=== PATIENT | female | born 1995 | race Caucasian/White ===

== ENCOUNTER 2019-05-25 03:00 | Inpatient (IN) | payer BC ==
[~2019-05-25] VITALS: Ht 157.5 cm; Wt 64.9 kg
[2019-05-25 02:40] VITALS: BP 91/57
--- NOTE | 2019-05-25 02:40 | NUR ---
Direct admit from [facility] admitted to Telemetry unit Patient oriented to Xiomara Marrufo RN primary RN, unit, room, bed, and unit policies regarding patient care and visiting hours. . Patient weighed by bedscale and encouraged to call if they need something. All questions and concerns addressed, patient verbalized understanding. Note: Patient admitted for syncopal episodes, seizure and fall precautions placed. Patient alert x4, no distress on room air, ambulatory with standby assistancem, skin intact
[2019-05-25] MEDS ORDERED: MORPHINE SULF INJ 2 MG/ML SYRINGE 1ML IV PRN (04:00)
[2019-05-25] MEDS ORDERED: NITROGLYCERIN 0.4 MG SL TAB SL PRN (04:00)
[2019-05-25 05:00] VITALS: BP 89/44
[2019-05-25 06:36] LABS: Basophils # (auto) 0 uL; Basophils % (auto) 0.3 % (0.0-2.0); Eosinophils # (auto) 0.1 uL; Eosinophils % (auto) 1.8 % (0.0-7.0); Hematocrit 39.8 % (36.0-46.0); Hemoglobin 13.8 g/dL (12.2-16.2); Lymphocytes # (auto) 2.5 uL; Lymphocytes % (auto) 39.1 % (10.0-50.0); Mean Corpuscular Hemoglobin 33.5 pg (28.0-32.0); Mean Corpuscular Hgb Conc. 34.6 g/dL (32.0-36.0); Monocytes # (auto) 0.5 uL; Monocytes % (auto) 7.3 % (0.0-12.0); Neutrophils # (auto) 3.3 uL; Neutrophils % (auto) 51.5 % (37.0-80.0); Nucleated Red Blood Cells % 0.1 %; Platelet Count (auto) 232 10^3/uL (140-450); Red Cell Distribution Width 12.2 % (11.8-14.3); White Blood Cell 6.5 10^3/uL (4.4-10.8)
[2019-05-25] MEDS: SODIUM CHLORIDE 0.9% 1,000 ML IV SCH ×2 (06:55→12:30)
[2019-05-25 06:56] LABS: Albumin 3.4 g/dL (3.4-5.0); Calcium 8.2 mg/dL (8.5-10.1); Potassium 3.6 mmol/L (3.5-5.1)
[2019-05-25 07:00] LABS: BUN/Creatinine Ratio 13.3; Bilirubin, Total 0.6 mg/dL (0.2-1.0); Total Protein 6.3 g/dL (6.4-8.2)
--- NOTE | 2019-05-25 07:30 | NUR ---
Opening Shift Note Assumed care of patient, awake and alert. No S/S of distress/SOB or pain. Instructed on POC and to call for assist PRN, will continue to monitor for changes Q1hr and PRN.
[2019-05-25 08:40] VITALS: BP 91/58
[2019-05-25 13:08] VITALS: BP 98/61
--- NOTE | 2019-05-25 14:00 | NUR ---
HELEN MADISON, AWARE OF ORTHOSTATIC BP ORDER.
[2019-05-25 17:07] VITALS: BP_SYST 105; BP_SYST 94; BP_SYST 97; BP_DIAS 57; BP_DIAS 58; BP_DIAS 72
--- NOTE | 2019-05-25 19:45 | NUR ---
Opening Shift Note Assumed care of patient, awake and alert. No S/S of distress/SOB or pain. Instructed on POC and to call for assistance PRN, will continue to monitor for changes Q1hr and PRN. Instructed to call for assistance to bathroom, bed alarm on
--- NOTE | 2019-05-25 20:59 | NUR ---
UA bulleted to lab
[2019-05-25 21:42] LABS: Urine Bacteria NONE SEEN /hpf (None Seen); Urine Blood Negative /uL (Negative); Urine Specific Gravity 1.013 (1.001-1.035); Urine WBC <1 /hpf (0 - 5)
[2019-05-25 22:00] VITALS: BP_SYST 101; BP_SYST 111; BP_DIAS 49; BP_DIAS 57; BP_DIAS 66
[2019-05-26 00:23] VITALS: BP 101/49
[2019-05-26] MEDS: SODIUM CHLORIDE 0.9% 1,000 ML IV SCH ×3 (01:11→21:20)
[2019-05-26 05:00] VITALS: BP_SYST 121; BP_SYST 90; BP_DIAS 46; BP_DIAS 57; BP_DIAS 62
[2019-05-26 06:51] LABS: Basophils # (auto) 0.1 uL; Basophils % (auto) 0.8 % (0.0-2.0); Eosinophils # (auto) 0.1 uL; Eosinophils % (auto) 2.3 % (0.0-7.0); Hematocrit 41.3 % (36.0-46.0); Hemoglobin 14.3 g/dL (12.2-16.2); Lymphocytes # (auto) 2.4 uL; Lymphocytes % (auto) 37.8 % (10.0-50.0); Mean Corpuscular Hemoglobin 33.7 pg (28.0-32.0); Mean Corpuscular Hgb Conc. 34.7 g/dL (32.0-36.0); Monocytes # (auto) 0.6 uL; Monocytes % (auto) 8.7 % (0.0-12.0); Neutrophils # (auto) 3.2 uL; Neutrophils % (auto) 50.4 % (37.0-80.0); Platelet Count (auto) 243 10^3/uL (140-450); Red Blood Cells 4.25 10^6/uL (4.0-5.20); White Blood Cell 6.3 10^3/uL (4.4-10.8)
--- NOTE | 2019-05-26 07:15 | NUR ---
Rounds Patient awake and alert x4. No S/S of distress/SOB or pain. Patient just ambulated back to bed with assistance from casino assistant manager, back in bed. Pt states she feels much better today. Will endorse care to Lelia SALCIDO
[2019-05-26 07:29] LABS: Calcium 8.7 mg/dL (8.5-10.1); Potassium 4.1 mmol/L (3.5-5.1)
[2019-05-26 07:30] LABS: BUN/Creatinine Ratio 17.6
--- NOTE | 2019-05-26 07:40 | NUR ---
OPENING NOTE Assumed care of patient from NOC RNXiomara. Patient awake and alert with no S/S of distress/SOB or pain. Instructed on POC and to call for assist PRN, verbalized understanding. Bed in lowest, locked position with side rails up x2 and call light within reach. Will continue to monitor for changes Q1hr and PRN.
[2019-05-26 08:52] VITALS: BP 111/64
--- NOTE | 2019-05-26 10:49 | NUR ---
NAUSEA Patient c/o nausea and increased vertigo. Assisted patient to restroom with moderate assistance secondary to weak gait. Informed patient to call for future assistance. Paged Dr. Pam Mcpherson per patient's request for antiemetic. Awaiting call back.
--- NOTE | 2019-05-26 11:35 | NUR ---
Nutrition consult/assessment Notes please see attached link for complete assessment Est. Needs BW 67 [id number] kcal (23-25 kcal/kgBW), 67-73 gms pro (1.0-1.1 gms/kgBW). Will continue to monitor pertinent labs and reassess nutrient need prn. Addendum: 05/26/19 at [address] Amended: Links added.
--- NOTE | 2019-05-26 12:05 | NUR ---
EEG COMPLETED AT BEDSIDE. LOLY PACK.
[2019-05-26 13:13] VITALS: BP 109/78
--- NOTE | 2019-05-26 15:00 | NUR ---
AT BEDSIDE Dr. Vladislav Mcpherson at patient's bedside.
[2019-05-26] MEDS ORDERED: PROMETHAZINE HCL 25 MG/ML 1ML IV PRN (15:30)
--- NOTE | 2019-05-26 16:15 | NUR ---
TELE PSYCH Called to initiate tele psych evaluation per order. Rep states top hat body maker will call to set up consultation time.
[2019-05-26 17:18] VITALS: BP 104/70
--- NOTE | 2019-05-26 19:20 | NUR ---
CLOSING NOTE Endorsed care of patient to NOC RN, Cassy.
[2019-05-26 21:30] VITALS: BP 94/58
[2019-05-27 04:30] VITALS: BP 96/48
[2019-05-27] MEDS: SODIUM CHLORIDE 0.9% 1,000 ML IV SCH ×2 (06:07→16:00)
[2019-05-27 06:46] LABS: Basophils # (auto) 0 uL; Basophils % (auto) 0.4 % (0.0-2.0); Eosinophils # (auto) 0.2 uL; Eosinophils % (auto) 2.3 % (0.0-7.0); Hematocrit 40.9 % (36.0-46.0); Hemoglobin 14.2 g/dL (12.2-16.2); Lymphocytes # (auto) 2.6 uL; Lymphocytes % (auto) 38.5 % (10.0-50.0); Mean Corpuscular Hemoglobin 33.9 pg (28.0-32.0); Mean Corpuscular Hgb Conc. 34.8 g/dL (32.0-36.0); Mean Corpuscular Volume 97.4 fL (80.0-100.0); Monocytes # (auto) 0.5 uL; Monocytes % (auto) 7.9 % (0.0-12.0); Neutrophils # (auto) 3.4 uL; Neutrophils % (auto) 50.9 % (37.0-80.0); Nucleated Red Blood Cells % 0.2 %; Platelet Count (auto) 241 10^3/uL (140-450); Red Cell Distribution Width 12.3 % (11.8-14.3); White Blood Cell 6.8 10^3/uL (4.4-10.8)
[2019-05-27 07:00] LABS: BUN/Creatinine Ratio 19.5; Calcium 8.4 mg/dL (8.5-10.1); Potassium 4.2 mmol/L (3.5-5.1)
--- NOTE | 2019-05-27 07:35 | NUR ---
OPENING NOTE Assumed care of patient from NOC RN, Cassy. Patient awake and alert with no S/S of distress/SOB or pain. Instructed on POC and to call for assist PRN, verbalized understanding. Bed in lowest, locked position with side rails up x2. Fall precautions in place and call light within reach. Will continue to monitor for changes Q1hr and PRN.
--- NOTE | 2019-05-27 08:35 | NUR ---
FALL Patient states that while in restroom she had a small fall "I was getting off the toilet and my legs got weak and I kind of landed on my butt." "It wasn't hard and I didn't hurt myself, the aide helped me back up". Patient assessed, no indication of redness, bruising or injury. Will continue to monitor.
[2019-05-27 09:00] VITALS: BP 92/55
[2019-05-27 12:44] VITALS: BP 102/49
--- NOTE | 2019-05-27 13:05 | NUR ---
TELE PSYCH Report given to Dr. Cheek. States interview will take place in approximately 10 minutes. Patient aware, tele psych machine in patient's room.
--- NOTE | 2019-05-27 16:03 | NUR ---
CARDIO Spoke to patient regarding scheduled procedure to place an implantable loop recorder per Dr. Garza's recommendation. Patient states that she does not recall the physician talking to her about this specific procedure. Contacted Dr. Garza to see if he could educate the patient further on the procedure. MD states that he has already spoken to patient twice in detail about the procedure and at this point thinks it would be best to cancel. Patient informed of cancelation.
--- NOTE | 2019-05-27 16:46 | NUR ---
CARDIO Patient states that she spoke to her father regarding procedure, looked up additional information and wants to proceed with procedure if MD is still willing. Informed Dr. Garza, is now planning on proceeding implantation, states he will come speak with patient in the morning.
[2019-05-27 17:00] VITALS: BP 101/48
[2019-05-27 21:30] VITALS: BP 95/61
[2019-05-27] MEDS: FOLIC ACID 1 MG TAB PO SCH (21:39)
[2019-05-28] MEDS: SODIUM CHLORIDE 0.9% 1,000 ML IV SCH ×2 (02:00→12:00)
[2019-05-28 04:30] VITALS: BP 101/54
[2019-05-28 06:48] LABS: Basophils # (auto) 0 uL; Basophils % (auto) 0.4 % (0.0-2.0); Eosinophils # (auto) 0.1 uL; Eosinophils % (auto) 2.1 % (0.0-7.0); Hematocrit 43.6 % (36.0-46.0); Hemoglobin 15.2 g/dL (12.2-16.2); Lymphocytes # (auto) 2.9 uL; Lymphocytes % (auto) 43.7 % (10.0-50.0); Mean Corpuscular Hemoglobin 33.6 pg (28.0-32.0); Mean Corpuscular Hgb Conc. 34.9 g/dL (32.0-36.0); Mean Corpuscular Volume 96.4 fL (80.0-100.0); Monocytes # (auto) 0.5 uL; Monocytes % (auto) 7.4 % (0.0-12.0); Neutrophils # (auto) 3.1 uL; Neutrophils % (auto) 46.4 % (37.0-80.0); Platelet Count (auto) 257 10^3/uL (140-450); Red Blood Cells 4.52 10^6/uL (4.0-5.20); Red Cell Distribution Width 12.2 % (11.8-14.3); White Blood Cell 6.6 10^3/uL (4.4-10.8)
[2019-05-28 06:59] LABS: Calcium 9.1 mg/dL (8.5-10.1); Potassium 3.7 mmol/L (3.5-5.1)
[2019-05-28 07:02] LABS: BUN/Creatinine Ratio 15.2
[2019-05-28 07:13] LABS: INR 0.97 (0.9-1.15); Partial Thromboplastin Time 25.9 sec (23.64-32.05)
--- NOTE | 2019-05-28 07:40 | NUR ---
RECEIVED PATIENT, ALERT AND ORIENTED X4, ON SEIZURE AND FALL PRECAUTION, NOT IN DISTRESS, CLEAR LS IN BILATERAL UPPER AND WHEEZING LOWER LUNG LOBES, RR=18, SAT=98% IN RA, HEAR RAT=76, DENIED SOB AND CHEST PAIN, ABDOMEN SOFT WITH ACTIVE, DENIED ABDOMINAL PAIN OR DISCOMFORT, KEEP NPO FOR HEART CATH ORDERED, EDUCATION WAS PROVIDED, VERBALIZED UNDERSTANDING, LAST BM=THIS MORNING REPORTED, SKIN INTACT WARM TO TOUCH, DENIED PAIN, RESTING ON BED, HAD OF BED ELEVATED, BED ON LOWER POSITION, RAILS UP X2, CALL LIGHTS ON REACH, PENDING HEART CATH AND SS CONSULT, WILL CONTINUE MONITORING.
[2019-05-28 09:00] VITALS: BP 100/70
--- NOTE | 2019-05-28 09:00 | NUR ---
NOT IN DISTRESS AND DENIED PAIN, VS T=97.7 RR=18 NKP=613% YQ=854/50 P=75, CHECK LIST AND CONSENT ON CHART, WENT ON BED TO HEALTH AND SAFETY INSPECTOR, TOLERATED WELL, WILL CONTINUE FOLLOW UP.
--- NOTE | 2019-05-28 09:05 | NUR ---
MOTHER WAS CALLED ON [phone] FOR FOLLOW UP AND UPDATE, LEFT A MESSAGE AND WAITING FOR CALL BACK.
--- NOTE | 2019-05-28 09:56 | NUR ---
Transfer, awaiting LOLY to fax [id number] application and tele psych report so I can [facility] Addendum: 05/28/19 at 1007 by Isabel Lindquist RN CM WRONG PT
[2019-05-28] MEDS: FOLIC ACID 1 MG TAB PO SCH (10:00)
--- NOTE | 2019-05-28 10:07 | NUR ---
Faxed ss order to [facility] for F/[facility]
[2019-05-28] MEDS ORDERED: LIDOCAINE 2%HCL (LOCAL ANESTH.) INJ 20ML MDV ONE (12:24)
[2019-05-28] MEDS ORDERED: VANCOMYCIN 1GM/250ML 250 ML IV ONE (12:35)
[2019-05-28] MEDS ORDERED: VANCOMYCIN HCL 1000 MG VL ONE (12:35)
[2019-05-28] MEDS ORDERED: fentaNYL CITRATE 100 MCG/2 ML VL ONE (12:40)
[2019-05-28] MEDS ORDERED: MIDAZOLAM HCL 1MG/1ML-2 ML VIAL ONE (12:40)
[2019-05-28 13:00] VITALS: BP 98/63
--- NOTE | 2019-05-28 14:23 | NUR ---
Came back from manager cath lab, alert and oriented x4, VS T=97.6 RR=18 Uso=076% P=72 JZ=842/47, Lt. upper chest surgical site covered with intact dressing, resting on bed, denied pain, family at bed side, will continue monitoring.
--- NOTE | 2019-05-28 14:40 | NUR ---
C/O ITCHING ON NECK AND SHOULDERS, REDNESS ON NECK NOTED, DR. LUAN VÁZQUEZ WAS CALLED AND LEFT A MESSAGE, WAITING FOR CALL BACK.
[2019-05-28] MEDS ORDERED: diphenhdrAMINE HCL 50 MG/1 ML VL IV ONE (15:00)
[2019-05-28] MEDS ORDERED: KETOROLAC TROMETH 60MG/2ML VIAL IM ONE (15:00)
--- NOTE | 2019-05-28 15:43 | NUR ---
AT 1507 BENADRYL IV X1 AND TORADOL IM X1 WAS GIVEN ORDERED BY DR. GLASS, ITCHING SUBSIDED IN 30 MINUTES, COMFORTABLE , RESTING ON BED, FAMILY VISITORS AT BED SIDE.
[2019-05-28 16:57] VITALS: BP 109/58
[2019-05-28 17:00] VITALS: BP 98/59
--- NOTE | 2019-05-28 18:00 | NUR ---
TOLERATED 100% OF DINNER TRAY, NOT IN DISTRESS, DENIED PAIN, PENDING D/C HOME TODAY.
--- NOTE | 2019-05-28 19:01 | NUR ---
D/C INSTRUCTIONS AND FOLLOW UP ARRANGEMENT INFORMATION AND EDUCATION WAS PROVIDED, SS PREARRANGEMENT FOR HOME HEALTH CARE PENDING WAITING FOR INSURANCE APPROVAL REPORTED BY SS, PATIENT VERBALIZED UNDERSTANDING, D/C TELE AND IV SITE FROM LT. HAND, TOLERATED WELL, VS T=97.8 RR=18 XRK=452% P=78 GH=697/64 PAIN L=2/10 REPORTED, RT. CHEST SURGICAL SITE DRY AND INTACT, COVERED WITH INTACT DRESSING, DENIED PAIN, D/C HOME ON WC ACCOMPANIED BY FAMILY MEMBER, TOOK ALL BELONGINGS AND LEFT NOTHING BEHIND.
--- NOTE | 2019-05-29 08:55 | NUR ---
FAXED SS FOR HH/PT TO [facility], WALLACE KELLEY FOR [facility] TO ARRANGE AND CALL ME WITH HH AGENCY
== END 2019-05-28 19:00 | disposition home health service (06) | DRG 262 ==
LOC: TELE-WESTW 03:00
PROVIDERS: ADMIT Internal Medicine; ATTEND Internal Medicine
PROC: 4A00X4Z Measurement of Central Nervous Electrical Activity, External Approach (ICD-10-PCS; 2019-05-27)
PROC: 0JH602Z Insertion of Monitoring Device into Chest Subcutaneous Tissue and Fascia, Open Approach (ICD-10-PCS; principal; 2019-05-28)
DX: I48.0 Paroxysmal atrial fibrillation (principal); F41.9 Anxiety disorder, unspecified; F44.9 Dissociative and conversion disorder, unspecified; Z82.49 Family history of ischemic heart disease and other diseases of the circulatory system; Z91.018 Allergy to other foods; Z88.0 Allergy status to penicillin; Z79.899 Other long term (current) drug therapy
CPT/HCPCS: 36415; 70551; 80048; 80053; 81001; 84443; 84702; 85025; 85610; 85730; 93306; 95819; G0378; J1885; J2250

== ENCOUNTER 2019-08-23 16:54 | Emergency (ER) | payer BC ==
[~2019-08-23] VITALS: Ht 157.5 cm; Wt 63.5 kg
[2019-08-23 18:07] LABS: Urine Bacteria FEW /hpf (None Seen); Urine Blood 2+ /uL (Negative); Urine Mucus FEW (None Seen); Urine Specific Gravity 1.023 (1.001-1.035); Urine WBC 7 /hpf (0 - 5)
[2019-08-23 18:26] LABS: Basophils # (auto) 0 uL; Basophils % (auto) 0.3 % (0.0-2.0); Eosinophils # (auto) 0.1 uL; Eosinophils % (auto) 0.8 % (0.0-7.0); Hematocrit 41.8 % (36.0-46.0); Hemoglobin 14.5 g/dL (12.2-16.2); Lymphocytes # (auto) 2.8 uL; Lymphocytes % (auto) 39.1 % (10.0-50.0); Mean Corpuscular Hemoglobin 33.8 pg (28.0-32.0); Mean Corpuscular Hgb Conc. 34.6 g/dL (32.0-36.0); Mean Corpuscular Volume 97.6 fL (80.0-100.0); Monocytes # (auto) 0.5 uL; Monocytes % (auto) 6.8 % (0.0-12.0); Neutrophils # (auto) 3.9 uL; Platelet Count (auto) 289 10^3/uL (140-450); Red Blood Cells 4.28 10^6/uL (4.0-5.20); Red Cell Distribution Width 12.3 % (11.8-14.3); White Blood Cell 7.3 10^3/uL (4.4-10.8)
[2019-08-23 18:38] LABS: Albumin 4.3 g/dL (3.4-5.0); Anion Gap 9 (5-15); Blood Urea Nitrogen 11 mg/dL (7-18); Carbon Dioxide 25 mmol/L (21-32); Chloride 106 mmol/L (98-107); Glucose 76 mg/dL (74-106); Potassium 3.7 mmol/L (3.5-5.1); Sodium 140 mmol/L (136-145)
[2019-08-23 18:45] LABS: Alanine Aminotransferase 25 U/L (13-56); Alkaline Phosphatase 56 U/L (45-117); Aspartate Aminotransferase 25 U/L (15-37); BUN/Creatinine Ratio 12.5; Bilirubin, Total 0.7 mg/dL (0.2-1.0); GFR African American 102 mL/min; GFR Non-African American 84 mL/min; Total Protein 7.9 g/dL (6.4-8.2)
[2019-08-23] MEDS ORDERED: cefTRIAXone 1GM/50ML D5W 50 ML IV ONE (20:15)
[2019-08-23] MEDS ORDERED: ONDANSETRON HCL 4 MG/2 ML VIAL IV ONE (20:15)
[2019-08-23] MEDS ORDERED: SODIUM CHLORIDE 0.9% 1,000 ML IV ONE (20:15)
[2019-08-23] MEDS ORDERED: metroNIDAZOLE 500MG/100ML 100 ML IV ONE (20:15)
[2019-08-24 00:02] VITALS: BP 103/61
== END 2019-08-24 00:02 | disposition home or self-care (01) ==
LOC: ER 17:08
DX: K52.9 Noninfective gastroenteritis and colitis, unspecified (principal); R07.89 Other chest pain; R06.02 Shortness of breath; R11.2 Nausea with vomiting, unspecified; R53.1 Weakness; R53.83 Other fatigue; Z91.040 Latex allergy status; Z88.1 Allergy status to other antibiotic agents
CPT/HCPCS: 36415; 71046; 74176; 80053; 81001; 81025; 84484; 85025; 93005; 96365; 96367; 96375; 99284; J0696; J2405; J3490; J7030

== ENCOUNTER 2019-09-30 10:17 | Emergency (ER) | payer BC ==
[~2019-09-30] VITALS: Ht 157.5 cm; Wt 56.7 kg
[2019-09-30] MEDS ORDERED: ONDANSETRON HCL 4 MG/2 ML VIAL IV ONE (11:00)
[2019-09-30] MEDS ORDERED: PANTOPRAZOLE 40 MG/10 ML VIAL INJ IV ONE (11:00)
[2019-09-30] MEDS ORDERED: SODIUM CHLORIDE 0.9% 1,000 ML IV ONE (11:00)
[2019-09-30 11:03] LABS: Basophils # (auto) 0 uL; Basophils % (auto) 0.3 % (0.0-2.0); Eosinophils # (auto) 0.1 uL; Eosinophils % (auto) 0.9 % (0.0-7.0); Hematocrit 44.4 % (36.0-46.0); Hemoglobin 15.4 g/dL (12.2-16.2); Lymphocytes # (auto) 2.1 uL; Lymphocytes % (auto) 29.2 % (10.0-50.0); Mean Corpuscular Hemoglobin 33.7 pg (28.0-32.0); Mean Corpuscular Hgb Conc. 34.7 g/dL (32.0-36.0); Mean Corpuscular Volume 97.1 fL (80.0-100.0); Monocytes # (auto) 0.4 uL; Neutrophils # (auto) 4.7 uL; Neutrophils % (auto) 63.6 % (37.0-80.0); Nucleated Red Blood Cells % 0.1 %; Platelet Count (auto) 310 10^3/uL (140-450); Red Blood Cells 4.57 10^6/uL (4.0-5.20); Red Cell Distribution Width 11.6 % (11.8-14.3); White Blood Cell 7.3 10^3/uL (4.4-10.8)
[2019-09-30 11:16] LABS: INR 1.06 (0.9-1.15); Partial Thromboplastin Time 26.2 sec (23.64-32.05)
[2019-09-30 11:20] LABS: Albumin 4.5 g/dL (3.4-5.0); BUN/Creatinine Ratio 16.3; Potassium 3.5 mmol/L (3.5-5.1)
[2019-09-30 11:36] LABS: Bilirubin, Total 0.5 mg/dL (0.2-1.0)
[2019-09-30 12:32] LABS: Urine Bacteria NONE SEEN /hpf (None Seen); Urine Blood Negative /uL (Negative); Urine Specific Gravity 1.009 (1.001-1.035); Urine WBC <1 /hpf (0 - 5)
== END 2019-09-30 13:04 | disposition home or self-care (01) ==
LOC: ER 10:17
DX: K29.00 Acute gastritis without bleeding (principal); Z88.0 Allergy status to penicillin; Z88.1 Allergy status to other antibiotic agents; Z91.040 Latex allergy status; Z91.018 Allergy to other foods
CPT/HCPCS: 36415; 80053; 81001; 81025; 83690; 85025; 85610; 85730; 96361; 96374; 96375; 99283; C9113; J2405; J7030

== ENCOUNTER 2022-05-03 21:07 | Emergency (ER) | payer SELFPAY ==
[~2022-05-03] VITALS: Ht 157.5 cm; Wt 56.7 kg
[2022-05-03] MEDS: SODIUM CHLORIDE 0.9% 1,000 ML IV ONE (21:45)
[2022-05-03 22:22] VITALS: BP 99/72
[2022-05-03 22:49] LABS: Basophils # (auto) 0 10 ^3/uL (0-0.2); Basophils % (auto) 0.2 % (0.0-2.0); Eosinophils # (auto) 0 10 ^3/uL (0-0.8); Eosinophils % (auto) 0.5 % (0.0-7.0); Hematocrit 37.8 % (36.0-46.0); Hemoglobin 13.3 g/dL (12.2-16.2); Lymphocytes # (auto) 1.9 10 ^3/uL (0.4-5.4); Lymphocytes % (auto) 21.6 % (10.0-50.0); Mean Corpuscular Hemoglobin 34.5 pg (28.0-32.0); Mean Corpuscular Hgb Conc. 35.2 g/dL (32.0-36.0); Mean Corpuscular Volume 97.8 fL (80.0-100.0); Monocytes # (auto) 0.9 10 ^3/uL (0-1.3); Monocytes % (auto) 9.8 % (0.0-12.0); Neutrophils # (auto) 6.1 10 ^3/uL (1.6-8.6); Neutrophils % (auto) 67.9 % (37.0-80.0); Nucleated Red Blood Cells % 0.1 %; Red Blood Cells 3.86 10^6/uL (4.0-5.20); White Blood Cell 8.9 10^3/uL (4.4-10.8)
[2022-05-03 23:05] LABS: Albumin 3.6 g/dL (3.4-5.0); BUN/Creatinine Ratio 16.9; Calcium 8.2 mg/dL (8.5-10.1); Potassium 3.8 mmol/L (3.5-5.1)
[2022-05-03 23:07] LABS: Bilirubin, Total 0.4 mg/dL (0.2-1.0); Total Protein 6.3 g/dL (6.4-8.2)
[2022-05-04 00:32] LABS: Urine Bacteria NONE SEEN /hpf (None Seen); Urine Blood Negative /uL (Negative); Urine Mucus MANY (None Seen); Urine Specific Gravity 1.038 (1.001-1.035); Urine WBC 11 /hpf (0 - 5)
[2022-05-04] MEDS ORDERED: DexAMETHasone INJECTION 10 MG in D5W 5% 50 ML IV ONE (01:00)
[2022-05-04] MEDS ORDERED: FLUT50SP (01:00)
[2022-05-04] MEDS: DexAMETHasone SOD PHOS 10MG/1ML VIAL INJ PO ONE (01:38)
== END 2022-05-04 01:47 | disposition home or self-care (01) ==
LOC: ER 21:07
DX: R55 Syncope and collapse (principal); J30.9 Allergic rhinitis, unspecified; Z88.1 Allergy status to other antibiotic agents; Z91.040 Latex allergy status
CPT/HCPCS: 36415; 80053; 81001; 81025; 85025; 93005; 96360; 99284; J1100; J7030; J7060

== ENCOUNTER 2023-05-23 21:49 | Emergency (ER) | payer MEDICAID ==
[~2023-05-23] VITALS: Ht 157.5 cm; Wt 60.0 kg
[~2023-05-23 21:49] MED LIST: FLUT50SP
[2023-05-23 22:17] LABS: Basophils # (auto) 0 10 ^3/uL (0-0.2); Basophils % (auto) 0.4 % (0.0-2.0); Eosinophils # (auto) 0.1 10 ^3/uL (0-0.8); Eosinophils % (auto) 0.5 % (0.0-7.0); Hematocrit 38.6 % (36.0-46.0); Hemoglobin 13.4 g/dL (12.2-16.2); Lymphocytes # (auto) 3.4 10 ^3/uL (0.4-5.4); Lymphocytes % (auto) 34.3 % (10.0-50.0); Mean Corpuscular Hemoglobin 33.7 pg (28.0-32.0); Mean Corpuscular Hgb Conc. 34.8 g/dL (32.0-36.0); Monocytes # (auto) 0.8 10 ^3/uL (0-1.3); Monocytes % (auto) 8.2 % (0.0-12.0); Neutrophils # (auto) 5.6 10 ^3/uL (1.6-8.6); Neutrophils % (auto) 56.6 % (37.0-80.0); Red Blood Cells 3.97 10^6/uL (4.0-5.20); Red Cell Distribution Width 12.2 % (11.8-14.3)
[2023-05-23 22:39] LABS: INR 1.09 (0.9-1.15); Partial Thromboplastin Time 26.8 SEC (24.5-34.5)
[2023-05-23 22:42] LABS: Calcium 8.7 mg/dL (8.5-10.1); Magnesium 2.5 mg/dL (1.6-2.6); Potassium 3.7 mmol/L (3.5-5.1)
[2023-05-23 22:48] LABS: BUN/Creatinine Ratio 20.9 (10.0-20.0); Bilirubin, Total 0.4 mg/dL (0.2-1.0); Total Protein 6.8 g/dL (6.4-8.2)
[2023-05-24 02:36] LABS: Urine Bacteria NONE SEEN /hpf (None Seen); Urine Blood Negative /uL (Negative); Urine Mucus FEW (None Seen); Urine Specific Gravity 1.029 (1.001-1.035); Urine WBC 2 /hpf (0 - 5)
[2023-05-24 05:00] VITALS: BP 108/67
== END 2023-05-24 05:04 | disposition home or self-care (01) ==
LOC: ER 21:49
DX: R07.89 Other chest pain (principal); Z91.040 Latex allergy status; Z79.899 Other long term (current) drug therapy
CPT/HCPCS: 36415; 80053; 81001; 83735; 83880; 84484; 85025; 85610; 85730; 93005

== ENCOUNTER 2023-08-10 11:20 | Emergency (ER) | payer MEDICAID ==
[2023-08-10] MEDS ORDERED: SODIUM CHLORIDE 0.9% 1,000 ML IVB ONE (11:30)
[2023-08-10 11:49] LABS: Basophils # (auto) 0 10 ^3/uL (0-0.2); Basophils % (auto) 0.3 % (0.0-2.0); Eosinophils # (auto) 0 10 ^3/uL (0-0.8); Eosinophils % (auto) 0.4 % (0.0-7.0); Hemoglobin 14.7 g/dL (12.2-16.2); Lymphocytes # (auto) 2.3 10 ^3/uL (0.4-5.4); Lymphocytes % (auto) 31.6 % (10.0-50.0); Mean Corpuscular Hgb Conc. 35.1 g/dL (32.0-36.0); Mean Corpuscular Volume 96.9 fL (80.0-100.0); Monocytes # (auto) 0.5 10 ^3/uL (0-1.3); Monocytes % (auto) 6.7 % (0.0-12.0); Neutrophils # (auto) 4.5 10 ^3/uL (1.6-8.6); Red Blood Cells 4.33 10^6/uL (4.0-5.20); Red Cell Distribution Width 11.9 % (11.8-14.3); White Blood Cell 7.4 10^3/uL (4.4-10.8)
[2023-08-10 12:07] LABS: Urine Bacteria NONE SEEN /hpf (None Seen); Urine Blood Negative /uL (Negative); Urine Clarity Clear (Clear); Urine Color Colorless (Yellow); Urine Protein, UAD Negative (Negative); Urine Specific Gravity 1.012 (1.001-1.035); Urine Urobilinogen Normal (Negative); Urine WBC 1 /hpf (0 - 5); Urine pH 6.5 (5.0-8.0)
[2023-08-10 12:08] LABS: Alanine Aminotransferase 20 U/L (7-40); Albumin 4.7 g/dL (3.2-4.8); Alkaline Phosphatase 50 U/L (46-116); Anion Gap 4 (5-15); Aspartate Aminotransferase 14 U/L (13-40); BUN/Creatinine Ratio 11.5 (10.0-20.0); Bilirubin, Total 0.7 mg/dL (0.2-1.0); Blood Alcohol < 3.0 mg/dL (<10); Blood Urea Nitrogen 11 mg/dL (9-23); Calcium 9.3 mg/dL (8.7-10.4); Carbon Dioxide 29 mmol/L (20-30); Chloride 104 mmol/L (98-107); Glucose 94 mg/dL (74-106); Magnesium 1.9 mg/dL (1.6-2.6); Potassium 3.8 mmol/L (3.5-5.1); Sodium 137 mmol/L (136-145); Total Protein 7.2 g/dL (5.7-8.2)
[2023-08-10 12:11] LABS: Amphetamine Screen, Urine Neg (NEGATIVE); Barbiturate Scree,Urine Neg (NEGATIVE); Benzodiazephine Screen, Urine Neg (NEGATIVE); Cannabinoid Screen, Urine Neg (NEGATIVE); Cocaine Screen, Urine Neg (NEGATIVE); Opiate Scree,Urine Neg (NEGATIVE); Phencyclidine Screen, Urine Neg (NEGATIVE)
[2023-08-10 13:13] VITALS: BP 101/61; PULSE 69; RESP 18; TEMP 97.9; O2SAT 100
== END 2023-08-10 13:14 | disposition home or self-care (01) ==
LOC: ER 11:20
DX: R55 Syncope and collapse (principal); R56.9 Unspecified convulsions; Z32.02 Encounter for pregnancy test, result negative; Z88.1 Allergy status to other antibiotic agents; Z91.040 Latex allergy status
CPT/HCPCS: 36415; 70450; 80053; 80307; 80320; 81001; 81025; 83735; 85025; 93005; 96360; 99284; J7030